=== PATIENT | male | born 1975 | race Caucasian/White ===

== ENCOUNTER 2016-07-26 18:44 | Emergency (ER) | payer MEDICARE, MEDICAID ==
--- NOTE | 2016-07-26 21:07 | RAD ---
Exam: 4 view left knee COMPARISON: None INDICATION: Left knee pain, no known trauma. [place] a pop 30 minutes ago, now has pain. Finding: AP, lateral and bilateral AP oblique views of left knee were obtained. There is no significant joint effusion. Alignment is normal. There is minor osteophyte formation along the tibial spines. Joint spaces maintained. IMPRESSION: No acute osseous abnormality in the left knee.
== END 2016-07-26 21:19 | disposition home or self-care (01) ==
LOC: ED 18:44
DX: S89.92XA Unspecified injury of left lower leg, initial encounter (principal); X50.0XXA Overexertion from strenuous movement or load, initial encounter; Y92.9 Unspecified place or not applicable